=== PATIENT | female | born 1960 | race Caucasian/White ===

== ENCOUNTER → 2016-12-31 | Outpatient (CLI) | payer OTHER ==
[2016-12-30 14:31] VITALS: BMI 19.4
[2016-12-31 13:36] VITALS: BP 133/77; PULSE 84; RESP 18; TEMP 98
--- NOTE | 2016-12-31 13:54 | P.HPIM ---
History of Present Illness H&P Date: 12/31/16 Chief Complaint: tailbone pain This is a 56-year-old patient referred by Dr. Cabral for chronic pain in sacrum and coccyx. Patient has been taking medications from primary care physician including tramadol with only mild relief. Patient states that she has sustained multiple sacral fractures, including recent fracture from a fall on November 24, 2016. Patient denies adverse drug effects from medications. Patient also denies new-onset weakness, bowel/bladder incontinence, or any other signs or symptoms of cauda equina syndrome. There are no signs of acute intoxication, and no indications of medication diversion or overuse. Patient notes that pain worsens significantly with sitting, and improves with standing, ice and medication. Patient has used several types of medications for pain, including NSAIDS, OPIOIDS, TRAMADOL. Patient HAS NOT had surgery. Patient HAS had injections previously (SIJ injections and RFA, which have helped her considerably). Patient HAS NOT had physical therapy recently. In addition to above, 13-point review of systems is also negative for chest pain , shortness of breath, changes in vision, changes in hearing, new onset weakness , abdominal pain, diarrhea, extreme fatigue, malaise, fever, skin changes, homicidal or suicidal ideation, or bowel or bladder incontinence. Vital Signs: Reviewed in EMR Gen: WDWN, AAOx3, NAD HEENT: NCAT, EOMI, hearing grossly normal Pulm: resp unlabored Abd: soft, NT, ND Neck: supple, trachea midline ROM in flexion lumbar spine: reduced ROM in extension lumbar spine: reduced Lumbar paravertebral tenderness: + Facet loading: + bilateral SI joint tenderness: ++ bilateral Rivera's test: ++ bilateral, L > R Straight leg raise: neg Sacrum: TTP over coccygeal area Neuro: CN II-XII grossly intact, muscle strength lower extremities PRESERVED Past Medical History Past Medical History: Asthma, Fibromyalgia, Osteoarthritis (OA) Additional Past Medical History / Comment(s): hx fx tailbone x 3, degenerative arthritis, osteoporosis History of Any Multi-Drug Resistant Organisms: None Reported Past Surgical History: Hysterectomy, Orthopedic Surgery Additional Past Surgical History / Comment(s): D&C, moles removed, [place] carpal tunnel, left shoulder arthroscopy, Past Anesthesia/Blood Transfusion Reactions: No Reported Reaction Smoking Status: Current every day smoker - Past Family History Father Family Medical History: Cancer Medications and Allergies Home Medications Medication Instructions Recorded Confirmed Type Aspirin [Adult Low Dose Aspirin EC] 81 mg PO DAILY 12/30/16 12/31/16 History Calcium Carbonate/Vitamin D3 1 each PO DAILY 12/30/16 12/31/16 History [Calcium 600-Vit D3 800 Tab] Multivitamins, Thera [Multivitamin 1 tab PO DAILY 12/30/16 12/31/16 History (formulary)] tiZANidine [Zanaflex] 4 mg PO Q8HR PRN 12/30/16 12/31/16 History traMADol HCL [Ultram] 50 mg PO Q6HR PRN 12/30/16 12/31/16 History Allergies Allergy/AdvReac Type Severity Reaction Status Date / Time Penicillins Allergy Unknown Verified 12/31/16 13:25 Physical Exam Vitals: Vital Signs Temp Pulse Resp BP Pulse Ox 12/31/16 13:27 98.0 F 84 18 133/77 94 L Results Comments: MRI lumbar spine demonstrates mild right and moderate left facet hypertrophic changes with osteophytic spur encroaching in the left neural foramen with moderate left neural foraminal narrowing at the L5-S1 level. At the L3-L4 level there is a tiny right foraminal disc protrusion with mild facet hypertrophic change with no central canal stenosis. Otherwise there is no high- grade central canal stenosis bone marrow edema or fracture. Assessment and Plan (1) Coccygodynia Status: Acute (2) SI (sacroiliac) joint dysfunction Status: Acute (3) Chronic pain syndrome Status: Acute Plan: 1. Explanation: Opioid and psychological risk scores were reviewed. Diagnoses , prognoses, and multiple treatment options including but not limited to physical therapy, interventional therapies, adjuvant medical therapies, narcotic medication therapies, and surgery were discussed with the patient and all questions were answered to the patient's satisfaction. 2. Opioid agreement: no opioids prescribed today 3. Counseling: The patient was counseled extensively on SMOKING CESSATION, BODY MASS INDEX, EXERCISE. Specifically, the patient was instructed regarding the importance of smoking cessation, weight control, and exercise in the context of both chronic pain and overall health. 4. Procedures: ganglion of impar block 5. Consultations: none 6. Investigations: none 7. Medications: none prescribed 8. Disposition: f/u for procedure as scheduled, consider SI RFA in future PQRS measures: 1-Patient's medications are documented in the chart. 2-Tobacco use is positive, counseling given 3-Patient has not had a pneumococcal vaccine. 4-Advanced care planning discussed, patient unable to give. 5-Opioid contract NOT signed with the patient. 6-Pain positive, follow-up visit or procedure scheduled 7-Patient's blood pressure measured and documented, and patient will follow up with the primary care due to hypertension. 8-Patient's weight was measured, and body mass index WNL. 9-Patient WAS NOT identified as an unhealthy alcohol user. Time with Patient: Greater than 30
== END | disposition home or self-care (01) ==
LOC: PNWHC3 12:54
PROVIDERS: ATTEND Anesthesiology
DX: M53.3 Sacrococcygeal disorders, not elsewhere classified (principal); G89.4 Chronic pain syndrome; J45.909 Unspecified asthma, uncomplicated; M19.90 Unspecified osteoarthritis, unspecified site; M79.7 Fibromyalgia; F17.200 Nicotine dependence, unspecified, uncomplicated; Z88.0 Allergy status to penicillin; Z79.82 Long term (current) use of aspirin; Z79.899 Other long term (current) drug therapy
CPT/HCPCS: 99201